=== PATIENT | male | born 1995 | race Caucasian/White ===

== ENCOUNTER 2025-02-19 20:07 | Emergency (ER) | payer SELFPAY ==
[2025-02-19] MEDS: Sulfamethoxazole/Trimethoprim 800-160 MG Tab PO STA (21:05)
== END 2025-02-19 21:27 | disposition home or self-care (01) ==
LOC: JD.ED 20:07
DX: L08.9 Local infection of the skin and subcutaneous tissue, unspecified (principal); F17.210 Nicotine dependence, cigarettes, uncomplicated; Z91.030 Bee allergy status; Z79.899 Other long term (current) drug therapy
CPT/HCPCS: 99283; A9270